=== PATIENT | female | born 1960 | race Caucasian/White ===

== ENCOUNTER 2020-06-18 18:01 | Inpatient (IN) | payer BC ==
[~2020-06-18] VITALS: Ht 160 cm; Wt 83.9 kg
[~2020-06-18 18:01] MED LIST: DIAZ5TAB PO; GABA-826 PO; HYDR-1067 PO; HYDR25TA6 PO; IBUP100T6 PO; LEVO137T3 PO; MULT-658 PO; tylenol PO
--- NOTE | 2020-06-18 18:17 | NUR ---
PATIENT IS A 60/F BIB EMS FROM [facility] COMPLAINING OF BACK PAIN, LEFT LEG AND PELVIS PAIN, AND LOWER ABDOMINIAL PAIN. SHE HAS A HX OF BREAST CANCER WITH METS TO THE BACK. SHE STARTED VOMITING ON ARRIVAL. SHE IS PALE AND COOL. CONTINUOUS SPO2 AND CYCLING VITALS. SHE WAS GIVEN 2L NS, 4 MORPHINE AND 4 ZOFRAN BY EMS. EMS REPORTS SHE RECEIVED 0.5MG DILAUDID AND 1GM OF ROCEPHIN AT [place] BEFORE DEPARTING. CALL LIGHT WITHIN REACH. WARM BLANKET PROVIDED.
[2020-06-18] MEDS ORDERED: ONDANSETRON 2MG/ML, 2ML ONE (18:25)
[2020-06-18] MEDS ORDERED: MORPHINE SULFATE 4 MG/ML, 1ML ONE ×2 (18:26→19:23)
[2020-06-18] MEDS: MORPHINE SULFATE 4 MG/ML, 1ML IVPush PRN ×2 (18:30→19:36)
[2020-06-18] MEDS ORDERED: ONDANSETRON 2MG/ML, 2ML IVPush ONE (18:30)
[2020-06-18] MEDS ORDERED: SODIUM CHLORIDE FLUSH 10ML SYR IVF ONE (18:30)
[2020-06-18] MEDS ORDERED: SODIUM CHLORIDE 0.9% 1,000ML IVBOLUS ONE (18:30)
--- NOTE | 2020-06-18 18:44 | NUR ---
WINDOWS MOBILE DEVELOPER AT BEDSIDE TO DRAW LABS. PT WITH PAIN DECREASED 6-12/06. NAUSEA SUBSIDING. NO EMESIS, RETCHING NOTED AT THIS TIME. PT CONT WITH 2LNC IN PLACE, SATS 93%. AWAITING FURTHER DISPOSITION.
--- NOTE | 2020-06-18 19:00 | NUR ---
REPORT TO LUKE ALVAREZ
[2020-06-18 19:03] LABS: ALBUMIN 3.4 g/dL (3.4-5.0); ANION GAP 8 mmol/L (5-15); CHLORIDE 104 mmol/L (98-107); CREATININE 1.77 mg/dL (0.55-1.02)
--- NOTE | 2020-06-18 19:03 | NUR ---
Beside report rec'd from Marline ALVAREZ. Patient noted to be resting comfortably at this time. Rates pain 6/10. at bedside
--- NOTE | 2020-06-18 19:37 | NUR ---
Patient placed on gambling monitor. Noted to be in increasing pain. Medicated per JUL.
[2020-06-18 20:06] LABS: MICROSCOPIC INDICATED
--- NOTE | 2020-06-18 20:25 | NUR ---
TASK RN: PT REPORTS IMPROVED PAIN, DENIES NEEDS AT THIS TIME VSS AWAITING ROOM UPSTAIRS
[2020-06-18] MEDS ORDERED: ONDANSETRON 2MG/ML, 2ML IVPush PRN (20:30)
[2020-06-18] MEDS ORDERED: HEPARIN 5,000 UNITS/ML, 1ML SQ SCH (20:30)
[2020-06-18] MEDS ORDERED: SODIUM CHLORIDE 0.9% 1,000 ML IV SCH (20:30)
[2020-06-18] MEDS ORDERED: BISACODYL 10 MG SUPP PR PRN (20:30)
[2020-06-18] MEDS ORDERED: ZOLEDRONIC ACID 0.8 MG/ML VIAL IV ONE (20:30)
[2020-06-18] MEDS ORDERED: ONDANSETRON ODT 4 MG PO PRN (20:30)
[2020-06-18] MEDS ORDERED: METHOCARBAMOL 500 MG TABLET PO PRN (20:30)
[2020-06-18] MEDS ORDERED: hydrALAzine 20 MG/ML, 1ML IVPush PRN (20:30)
[2020-06-18 20:49] LABS: FREE T4 (FREE THYROXINE) 0.76 ng/dL (0.76-1.46)
[2020-06-18] MEDS ORDERED: MEDROL 4MG DOSEPAK PO ONE (21:00)
[2020-06-18 21:30] VITALS: BP 133/78
[2020-06-18] MEDS: SODIUM CHLORIDE 0.9% 1,000 ML IV SCH (22:30)
[2020-06-18] MEDS ORDERED: ZOLEDRONIC ACID 3 MG in SODIUM CHLORIDE 0.9% 100 ML IVPB ONE (23:00)
[2020-06-19 00:43] VITALS: BP 111/73
[2020-06-19] MEDS: morphine SULFATE 10 MG/ML, 1ML IVPush PRN ×3 (02:47→23:32)
[2020-06-19] MEDS: SODIUM CHLORIDE 0.9% 1,000 ML IV SCH ×5 (04:30→23:33)
[2020-06-19 04:58] LABS: BASOPHILS % (AUTO) 0 % (0-1); EOSINOPHILS % (AUTO) 0 % (1-7); LYMPHOCYTES % (AUTO) 19 % (22-44); MEAN CORPUSCULAR HEMOGLOBIN 19.3 pg (27.0-34.8); MEAN CORPUSCULAR HGB CONC 31.8 g/dL (32.4-35.8); MEAN PLATELET VOLUME 7.9 fL (7.4-10.4); MONOCYTES % (AUTO) 4 % (2-9); NEUTROPHILS % (AUTO) 77 % (42-75); PLATELET COUNT 285 x10^3/uL (130-400)
[2020-06-19 05:10] LABS: MD NO
[2020-06-19 05:11] LABS: ANION GAP 6 mmol/L (5-15); CALCIUM 12.4 mg/dL (8.5-10.1); CHLORIDE 109 mmol/L (98-107)
[2020-06-19 05:20] LABS: CHOL/HDL RATIO 4.5; CHOLESTEROL, TOTAL 179 mg/dL (140-239); CREATININE 1.66 mg/dL (0.55-1.02); HDL CHOL % 22 % (28-40); HDL CHOLESTEROL (DIRECT) 40 mg/dL (40-60); LDL CHOLESTEROL,CALCULATED 105 mg/dL (54-169); LDL/HDL RATIO 2.6 (0.5-3.0); TRIGLYCERIDES 169 mg/dL (50-200); VLDL CHOLESTEROL 34 mg/dL (0-25)
[2020-06-19 07:00] VITALS: BP 115/69
[2020-06-19] MEDS: PROMETHAZINE 25 MG/ML, 1ML IM PRN (08:15)
[2020-06-19] MEDS: SENNA/DOCUSATE TABLET PO SCH (08:15)
[2020-06-19] MEDS ORDERED: FENTANYL PF 100 MCG/2ML ONE (09:25)
[2020-06-19] MEDS ORDERED: FLUMAZENIL 0.1 MG/1 ML, 5ML ONE (09:25)
[2020-06-19] MEDS ORDERED: NALOXONE 1 MG/ML, 2ML ONE (09:25)
[2020-06-19] MEDS ORDERED: MIDAZOLAM 1 MG/ML, 5ML ONE (09:25)
[2020-06-19 11:02] VITALS: BP 103/66
[2020-06-19 14:26] VITALS: BP 114/70
[2020-06-19 19:12] VITALS: BP 112/69
[2020-06-19] MEDS ORDERED: DEXAMETHASONE 4 MG TABLET PO SCH (21:00)
[2020-06-20 01:56] VITALS: BP 115/70
[2020-06-20 05:06] LABS: MEAN CORPUSCULAR HEMOGLOBIN 19.3 pg (27.0-34.8); MEAN CORPUSCULAR HGB CONC 31.7 g/dL (32.4-35.8); MEAN PLATELET VOLUME 8.5 fL (7.4-10.4); PLATELET COUNT 241 x10^3/uL (130-400); RED BLOOD COUNT 4.18 x10^6/uL (3.82-5.3); RED CELL DISTRIBUTION WIDTH 16.1 % (9.6-15.2)
[2020-06-20 05:17] LABS: ANION GAP 7 mmol/L (5-15); CHLORIDE 111 mmol/L (98-107)
[2020-06-20 05:20] LABS: ALANINE AMINOTRANSFERASE 70 U/L (12-78); ALKALINE PHOSPHATASE 218 U/L (45-117); BILIRUBIN,TOTAL 0.4 mg/dL (0.2-1.0); CREATININE 1.43 mg/dL (0.55-1.02); TOTAL PROTEIN 6.3 g/dL (6.4-8.2)
[2020-06-20] MEDS: SODIUM CHLORIDE 0.9% 1,000 ML IV SCH ×3 (05:50→16:40)
[2020-06-20 06:34] LABS: MD YES
[2020-06-20 06:35] VITALS: BP 119/71
[2020-06-20 06:35] LABS: ANISOCYTOSIS 2+; BAND#(MANUAL) 0.31 x10^3/uL; BANDS%(MANUAL) 3 % (0-7); HYPOCHROMIA 1+; LYMPH#(MANUAL) 1.25 x10^3/uL (1-3.4); LYMPHS% (MANUAL) 12 % (22-44); MICROCYTOSIS 2+; MONOS#(MANUAL) 0.21 x10^3/uL (0.3-2.7); MONOS% (MANUAL) 2 % (2-9); SEG#(MANUAL) 8.63 x10^3/uL (1.8-6.8); SEGS% (MANUAL) 83 % (42-75)
[2020-06-20 06:36] LABS: <PLATELET ESTIMATE> ADEQUATE; <PLT MORPHOLOGY> NORMAL PLT MORPH; OVALOCYTES 1+; POLYCHROMASIA 1+; TEAR DROPS 1+
[2020-06-20] MEDS: SENNA/DOCUSATE TABLET PO SCH (07:48)
[2020-06-20] MEDS: DEXAMETHASONE 4 MG TABLET PO SCH ×2 (07:49→14:49)
[2020-06-20] MEDS: OXYcodone IR 5MG TABLET PO PRN ×3 (07:49→20:22)
[2020-06-20 12:27] VITALS: BP 128/77
[2020-06-20] MEDS: PROMETHAZINE 25 MG/ML, 1ML IM PRN (15:16)
[2020-06-20] MEDS: POLYETHYLENE GLYCOL 17 GM PACKET PO PRN (16:58)
[2020-06-20 19:27] VITALS: BP 125/72
[2020-06-21] MEDS: SODIUM CHLORIDE 0.9% 1,000 ML IV SCH ×2 (01:37→14:49)
[2020-06-21 01:39] VITALS: BP 120/71
[2020-06-21 06:09] LABS: BASOPHILS % (AUTO) 0 % (0-1); EOSINOPHILS % (AUTO) 0 % (1-7); LYMPHOCYTES % (AUTO) 17 % (22-44); MEAN CORPUSCULAR HEMOGLOBIN 19.2 pg (27.0-34.8); MEAN CORPUSCULAR HGB CONC 31.3 g/dL (32.4-35.8); MEAN PLATELET VOLUME 8.6 fL (7.4-10.4); MONOCYTES % (AUTO) 3 % (2-9); NEUTROPHILS % (AUTO) 80 % (42-75); PLATELET COUNT 256 x10^3/uL (130-400); RED BLOOD COUNT 4.56 x10^6/uL (3.82-5.3); RED CELL DISTRIBUTION WIDTH 16.1 % (9.6-15.2)
[2020-06-21 06:18] LABS: ALBUMIN 3.2 g/dL (3.4-5.0); ANION GAP 5 mmol/L (5-15); CALCIUM 8.8 mg/dL (8.5-10.1); CHLORIDE 109 mmol/L (98-107)
[2020-06-21 06:23] LABS: ALANINE AMINOTRANSFERASE 65 U/L (12-78); ALKALINE PHOSPHATASE 243 U/L (45-117); BILIRUBIN,TOTAL 0.4 mg/dL (0.2-1.0); CREATININE 1.18 mg/dL (0.55-1.02); TOTAL PROTEIN 6.6 g/dL (6.4-8.2)
[2020-06-21 06:31] VITALS: BP 124/64
[2020-06-21 06:42] LABS: MD MORPH REVIEW ONLY
[2020-06-21 06:43] LABS: ANISOCYTOSIS 2+; HYPOCHROMIA 1+; MICROCYTOSIS 2+
[2020-06-21 06:44] LABS: OVALOCYTES 1+; POLYCHROMASIA 1+
[2020-06-21 06:45] LABS: <PLATELET ESTIMATE> ADEQUATE; <PLT MORPHOLOGY> NORMAL PLT MORPH
[2020-06-21] MEDS ORDERED: GLYCERIN ADULT SUPP PR PRN (08:00)
[2020-06-21] MEDS ORDERED: HEPARIN 5,000 UNITS/ML, 1ML ONE (08:08)
[2020-06-21] MEDS: SENNA/DOCUSATE TABLET PO SCH (08:14)
[2020-06-21] MEDS: DEXAMETHASONE 4 MG TABLET PO SCH ×4 (08:14→23:13)
[2020-06-21] MEDS: HEPARIN 5,000 UNITS/ML, 1ML SQ SCH ×3 (08:15→23:13)
[2020-06-21] MEDS: LEVOTHYROXINE 137 MCG TABLET PO SCH (11:37)
[2020-06-21] MEDS: OXYcodone IR 5MG TABLET PO PRN ×3 (13:36→23:13)
[2020-06-21 13:44] VITALS: BP 143/77
[2020-06-21] MEDS: POLYETHYLENE GLYCOL 17 GM PACKET PO PRN (14:44)
[2020-06-21 14:45] VITALS: BP 144/76
[2020-06-21] MEDS ORDERED: SODIUM CHLORIDE 0.9% 1,000 ML IV SCH (16:00)
[2020-06-21 19:04] VITALS: BP 155/89
[2020-06-22 00:40] VITALS: BP 129/80
[2020-06-22] MEDS: SODIUM CHLORIDE 0.9% 1,000 ML IV SCH (05:02)
[2020-06-22] MEDS: LEVOTHYROXINE 137 MCG TABLET PO SCH (06:17)
[2020-06-22 06:23] LABS: ALBUMIN 3.1 g/dL (3.4-5.0); ANION GAP 6 mmol/L (5-15); CALCIUM 8.5 mg/dL (8.5-10.1); CHLORIDE 108 mmol/L (98-107)
[2020-06-22] MEDS: OXYcodone IR 5MG TABLET PO PRN ×3 (06:24→20:22)
[2020-06-22 06:27] LABS: MEAN CORPUSCULAR HGB CONC 31.5 g/dL (32.4-35.8); MEAN PLATELET VOLUME 9.3 fL (7.4-10.4); PLATELET COUNT 235 x10^3/uL (130-400); RED BLOOD COUNT 4.45 x10^6/uL (3.82-5.3); RED CELL DISTRIBUTION WIDTH 16.4 % (9.6-15.2)
[2020-06-22 06:30] LABS: ALANINE AMINOTRANSFERASE 58 U/L (12-78); ALKALINE PHOSPHATASE 252 U/L (45-117); BILIRUBIN,TOTAL 0.8 mg/dL (0.2-1.0); CREATININE 0.92 mg/dL (0.55-1.02); TOTAL PROTEIN 6.3 g/dL (6.4-8.2)
[2020-06-22 07:02] LABS: MD YES
[2020-06-22 07:03] LABS: BAND#(MANUAL) 0.11 x10^3/uL; BANDS%(MANUAL) 1 % (0-7); LYMPH#(MANUAL) 1.34 x10^3/uL (1-3.4); LYMPHS% (MANUAL) 12 % (22-44); MONOS#(MANUAL) 0.22 x10^3/uL (0.3-2.7); MONOS% (MANUAL) 2 % (2-9); MYELOCYTES# (MANUAL) 0.11 x10^3/uL (0-0); MYELOCYTES% (MANUAL) 1 % (0-0); SEG#(MANUAL) 9.41 x10^3/uL (1.8-6.8); SEGS% (MANUAL) 84 % (42-75)
[2020-06-22 07:04] LABS: <PLATELET ESTIMATE> ADEQUATE; <PLT MORPHOLOGY> NORMAL PLT MORPH; ANISOCYTOSIS 2+; MICROCYTOSIS 2+; OVALOCYTES 1+; POLYCHROMASIA 1+
[2020-06-22 07:43] VITALS: BP 137/83
[2020-06-22] MEDS: HEPARIN 5,000 UNITS/ML, 1ML SQ SCH ×3 (08:48→23:48)
[2020-06-22] MEDS: DEXAMETHASONE 4 MG TABLET PO SCH ×3 (08:48→23:48)
[2020-06-22] MEDS: SENNA/DOCUSATE TABLET PO SCH (08:48)
[2020-06-22] MEDS: MAGNESIUM HYDROXIDE 8%, 30ML UDC PO SCH (11:23)
[2020-06-22 13:15] VITALS: BP 143/82
[2020-06-22 18:25] VITALS: BP 129/77
[2020-06-22] MEDS: ACETAMINOPHEN 325 MG TABLET PO PRN (20:22)
[2020-06-22] MEDS: POLYETHYLENE GLYCOL 17 GM PACKET PO PRN (20:35)
[2020-06-23 01:34] VITALS: BP 108/66
[2020-06-23] MEDS: ACETAMINOPHEN 325 MG TABLET PO PRN ×3 (03:42→14:46)
[2020-06-23] MEDS: OXYcodone IR 5MG TABLET PO PRN ×3 (03:42→14:46)
[2020-06-23] MEDS: LEVOTHYROXINE 137 MCG TABLET PO SCH (06:25)
[2020-06-23 06:39] VITALS: BP 138/82
[2020-06-23] MEDS: DEXAMETHASONE 4 MG TABLET PO SCH (08:03)
[2020-06-23] MEDS: HEPARIN 5,000 UNITS/ML, 1ML SQ SCH (08:03)
[2020-06-23] MEDS: SENNA/DOCUSATE TABLET PO SCH (09:00)
[2020-06-23] MEDS: MAGNESIUM HYDROXIDE 8%, 30ML UDC PO SCH (09:00)
[2020-06-23 12:32] VITALS: BP 131/75
[2020-06-23] MEDS ORDERED: OXYC5TAB98 PO (14:17)
[2020-06-23] MEDS ORDERED: DEXA4TAB66 PO (14:17)
== END 2020-06-23 17:56 | disposition home or self-care (01) | DRG 543 ==
LOC: ED 18:59 → EDIP 19:04 → 4WST 21:18 → 4NW 06-21 14:34
PROVIDERS: ADMIT Internal Medicine; ATTEND Internal Medicine
PROC: 0T9B30Z Drainage of Bladder with Drainage Device, Percutaneous Approach (ICD-10-PCS; principal; 2020-06-18)
PROC: 07DS3ZX Extraction of Vertebral Bone Marrow, Percutaneous Approach, Diagnostic (ICD-10-PCS; 2020-06-19)
DX: C79.51 Secondary malignant neoplasm of bone (principal); N17.9 Acute kidney failure, unspecified; M89.78 Major osseous defect, other site; C50.911 Malignant neoplasm of unspecified site of right female breast; D50.9 Iron deficiency anemia, unspecified; D56.9 Thalassemia, unspecified; D63.8 Anemia in other chronic diseases classified elsewhere; E03.9 Hypothyroidism, unspecified; E83.52 Hypercalcemia; E86.0 Dehydration; G89.29 Other chronic pain; E66.9 Obesity, unspecified; I10 Essential (primary) hypertension; K59.00 Constipation, unspecified; M54.16 Radiculopathy, lumbar region; Z17.0 Estrogen receptor positive status [ER+]; Z80.1 Family history of malignant neoplasm of trachea, bronchus and lung; Z85.3 Personal history of malignant neoplasm of breast; Z87.891 Personal history of nicotine dependence; Z90.13 Acquired absence of bilateral breasts and nipples; Z90.711 Acquired absence of uterus with remaining cervical stump; Z92.21 Personal history of antineoplastic chemotherapy; Z79.899 Other long term (current) drug therapy; Z79.891 Long term (current) use of opiate analgesic; Z79.01 Long term (current) use of anticoagulants; Z90.710 Acquired absence of both cervix and uterus; Z98.49 Cataract extraction status, unspecified eye; Z68.32 Body mass index [BMI] 32.0-32.9, adult
CPT/HCPCS: 36415; 38222; 77012; 77295; 77300; 77334; 77387; 77412; 80048; 80053; 80061; 81001; 82040; 82330; 83036; 83735; 84100; 84439; 84443; 85025; 87086; 88307; 88311; 88341; 88342; 88360; 93005; 96374; 96375; 96376; 99156; 99157; 99285; G0378; J1644; J2250; J2405; J2550; J3010; J3489; J7509; J2270; J2310; J7030

== ENCOUNTER 2020-08-01 13:18 | Day surgery (SDC) | payer BC ==
[~2020-08-01] VITALS: Ht 160 cm; Wt 72.7 kg
[~2020-08-01 13:18] MED LIST changes: +DEXA4TAB66 PO; +OXYC5TAB98 PO
[2020-08-01 13:47] VITALS: BP 124/80
[2020-08-01] MEDS ORDERED: LEVO125T PO (13:54)
[2020-08-01] MEDS ORDERED: ACET-1600 PO (13:54)
[2020-08-01] MEDS ORDERED: IBUP-1222 PO (13:54)
[2020-08-01] MEDS ORDERED: SODIUM CHLORIDE 0.9% 1,000 ML IV SCH ×2 (14:00→14:06)
[2020-08-01] MEDS ORDERED: LIDOCAINE-MPF 1%, 5ML ONE (15:08)
== END 2020-08-01 19:20 | disposition home or self-care (01) ==
LOC: RAD 13:18
PROVIDERS: ATTEND Internal Medicine
DX: C50.911 Malignant neoplasm of unspecified site of right female breast (principal); C79.51 Secondary malignant neoplasm of bone; G96.198 Other disorders of meninges, not elsewhere classified; Z17.0 Estrogen receptor positive status [ER+]; Z87.891 Personal history of nicotine dependence; Z79.890 Hormone replacement therapy; Z79.1 Long term (current) use of non-steroidal anti-inflammatories (NSAID); Z79.899 Other long term (current) drug therapy
CPT/HCPCS: 62328; 88108; J7030

== ENCOUNTER → 2020-10-30 | Outpatient (CLI) | payer BC ==
[~2020-10-30] MED LIST changes: +ACET-1600 PO; -HYDR-1067 PO; +HYDR-2214 PO; +IBUP-1222 PO; +LEVO125T PO; +OMNIPAQUE 350 MG/ML, 100ML BOTTLE ONE
== END | disposition home or self-care (01) ==
LOC: RAD 09:26
PROVIDERS: ATTEND Internal Medicine
DX: C79.51 Secondary malignant neoplasm of bone (principal); C50.911 Malignant neoplasm of unspecified site of right female breast; R91.8 Other nonspecific abnormal finding of lung field; K44.9 Diaphragmatic hernia without obstruction or gangrene; K57.30 Diverticulosis of large intestine without perforation or abscess without bleeding; K76.89 Other specified diseases of liver
CPT/HCPCS: 71260; 74177; 78306; A9503; Q9967

== ENCOUNTER 2021-01-23 10:00 | Outpatient (CLI) | payer BC ==
[~2021-01-23 10:00] MED LIST changes: -OMNIPAQUE 350 MG/ML, 100ML BOTTLE ONE
[2021-01-23] MEDS ORDERED: OMNIPAQUE 350 MG/ML, 100ML BOTTLE ONE (11:27)
== END 2021-01-23 23:59 | disposition home or self-care (01) ==
LOC: RAD 10:00
PROVIDERS: ATTEND Internal Medicine
DX: C79.51 Secondary malignant neoplasm of bone (principal); C50.911 Malignant neoplasm of unspecified site of right female breast; R91.8 Other nonspecific abnormal finding of lung field; M89.8X8 Other specified disorders of bone, other site; K76.0 Fatty (change of) liver, not elsewhere classified; K76.89 Other specified diseases of liver; D18.09 Hemangioma of other sites; K57.30 Diverticulosis of large intestine without perforation or abscess without bleeding
CPT/HCPCS: 71260; 74177; 78306; A9503; Q9967

== ENCOUNTER 2021-02-01 14:34 | Emergency (ER) | payer BC ==
[~2021-02-01] VITALS: Ht 160 cm; Wt 72.7 kg
--- NOTE | 2021-02-01 16:46 | NUR ---
chemical etching processor note: Pt to room from lobby.
--- NOTE | 2021-02-01 17:02 | NUR ---
erp at bs for eval
--- NOTE | 2021-02-01 17:10 | NUR ---
PT TO ROOM FROM [facility]AGE, CHANGED INTO GOWN, MONITORS IN PLACE. PT C/O R-SIDED FACIAL DROOP. HX OF BELLS PALSY. PT STATES "I LIVE IN [place] AND WAS SEEN FOR THIS ON TUESDAY. I WAS PLACED ON AUGMENTIN. I THOUGHT I WAS HAVING A REACTION SINCE MY TONGUE FELT SWOLLEN AND I WENT TO THE HOSPITAL IN [place] AND THEY TOLD ME IT WASN'T ANYTHING AND SENT ME HOME. NOW I'M HAVING SOME PARALYSIS."
[2021-02-01] MEDS ORDERED: MORPHINE SULFATE 4 MG/ML, 1ML ONE (17:24)
[2021-02-01] MEDS ORDERED: MORPHINE SULFATE 4 MG/ML, 1ML IVPush ONE (17:30)
--- NOTE | 2021-02-01 17:31 | NUR ---
PIV PLACED, PT MEDICATED PER EMAR
[2021-02-01 17:33] LABS: BASOPHILS % (AUTO) 1 % (0-1)
--- NOTE | 2021-02-01 17:33 | NUR ---
PT TO CT
[2021-02-01 17:38] LABS: EOSINOPHILS % (AUTO) 1 % (1-7); LYMPHOCYTES % (AUTO) 38 % (22-44); MEAN CORPUSCULAR HGB CONC 31.3 g/dL (32.4-35.8); MEAN PLATELET VOLUME 8.7 fL (7.4-10.4); MONOCYTES % (AUTO) 8 % (2-9); NEUTROPHILS % (AUTO) 53 % (42-75); PLATELET COUNT 108 x10^3/uL (130-400); RED BLOOD COUNT 3.71 x10^6/uL (3.82-5.3); RED CELL DISTRIBUTION WIDTH 19.8 % (9.6-15.2)
[2021-02-01 17:39] LABS: ALANINE AMINOTRANSFERASE 38 U/L (12-78); ALBUMIN 3.6 g/dL (3.4-5.0); ANION GAP 6 mmol/L (5-15); CALCIUM 8.9 mg/dL (8.5-10.1); CHLORIDE 107 mmol/L (98-107); CREATININE 0.82 mg/dL (0.55-1.02)
[2021-02-01 17:41] LABS: ALKALINE PHOSPHATASE 87 U/L (45-117); BILIRUBIN,TOTAL 0.6 mg/dL (0.2-1.0); TOTAL PROTEIN 7.1 g/dL (6.4-8.2)
--- NOTE | 2021-02-01 17:45 | NUR ---
PT BACK FROM CT, CONNECTED TO MONITORS, PT STATES SHE FEELS MUCH BETTER AFTER MEDICATION. CALL LIGHT WITHIN REACH, AT BS
[2021-02-01 18:08] LABS: POLYCHROMASIA 1+
[2021-02-01 18:09] LABS: <PLATELET ESTIMATE> DECREASED; <PLT MORPHOLOGY> NORMAL PLT MORPH; ANISOCYTOSIS 1+; HYPOCHROMIA 1+
--- NOTE | 2021-02-01 18:25 | NUR ---
PT RESTING ON ARJUN BAXTER/VSS. CALL LIGHT WITHIN REACH, AT BS. PT DENIES ANY PAIN AT THIS TIME. CHART AWAITING RECHECK
--- NOTE | 2021-02-01 18:49 | NUR ---
REPORT TO KIM LANCASTER
--- NOTE | 2021-02-01 18:51 | NUR ---
Oseas jacob in [facility] - 02/01/21 at 1852 by [email or web address] REPORT FROM DEBBIE ALVAREZ
--- NOTE | 2021-02-01 18:53 | NUR ---
REPORT FROM DEBBIE ALVAREZ
[2021-02-01] MEDS ORDERED: DEXAMETHASONE 4 MG/ML, 1ML IVPush ONE (19:00)
[2021-02-01] MEDS ORDERED: DEXAMETHASONE 4 MG/ML, 1ML ONE (19:05)
[2021-02-01 19:34] VITALS: BP 112/62
== END 2021-02-01 19:57 | disposition home or self-care (01) ==
LOC: ED 19:48
DX: G51.0 Bell's palsy (principal); R51.9 Headache, unspecified; Z87.891 Personal history of nicotine dependence
CPT/HCPCS: 36415; 70450; 72125; 80053; 85025; 96374; 96375; 99285; J1100; J2270

== ENCOUNTER 2021-02-17 08:00 | Day surgery (SDC) | payer BC ==
[~2021-02-17] VITALS: Ht 160 cm; Wt 70.8 kg
[2021-02-17 12:04] VITALS: BP 123/73
[2021-02-17] MEDS: SODIUM CHLORIDE 0.9% 1,000 ML IV SCH (12:07)
[2021-02-17 15:10] LABS: GLUCOSE, CSF 60 mg/dL (40-80); TOTAL PROTEIN,CSF 47 mg/dL (15-45)
== END 2021-02-17 16:40 | disposition home or self-care (01) ==
LOC: RAD 08:00
PROVIDERS: ATTEND Internal Medicine
DX: C50.919 Malignant neoplasm of unspecified site of unspecified female breast (principal)
CPT/HCPCS: 62328; 82945; 84157; 88108; J7030